=== PATIENT | female | born 1955 | race Hispanic/Latino ===

== ENCOUNTER 2017-08-06 10:44 | Observation (INO) | payer OTHER ==
[~2017-08-06] VITALS: Ht 162.6 cm; Wt 95.8 kg
[2017-08-06 11:26] LABS: BASOPHILS % (AUTO) 1.1 % (0.0-5.0); EOSINOPHILS % (AUTO) 6.3 % (0.0-8.0); HEMATOCRIT 37.3 % (36-48); LYMPHOCYTES % (AUTO) 22.9 % (21.0-51.0); MEAN CORPUSCULAR HEMOGLOBIN 29.2 pg (27.0-33.0); MEAN CORPUSCULAR HGB CONC 34.5 g/dL (32.0-36.0); MEAN CORPUSCULAR VOLUME 84.6 fL (79-99); NEUTROPHILS % (AUTO) 63.7 % (40.0-77.0); PLATELET COUNT (AUTO) 353 K/uL (130-400); RED BLOOD CELL COUNT(AUTO) 4.41 MIL/uL (4.00-5.50); RED CELL DISTRIBUTION WIDTH 13.3 % (11.0-15.5); WHITE BLOOD COUNT (AUTO) 8.7 K/uL (4.8-10.8)
[2017-08-06 11:39] LABS: CREATININE 1.2 mg/dL (0.5-1.5); POTASSIUM 4.4 mmol/L (3.5-5.1)
[2017-08-06 11:54] LABS: ALBUMIN 2.9 g/dL (3.5-5.0); BILIRUBIN,TOTAL 0.4 mg/dL (0.2-1.0); CREATINE KINASE MB 0.6 ng/mL (0.5-3.6); TOTAL PROTEIN, SERUM 8.2 g/dL (6.0-8.3)
[2017-08-06] MEDS ORDERED: TETRACAINE HCL 0.5% 4 ML OPHTH SOLN ONE (12:59)
[2017-08-06] MEDS ORDERED: SODIUM CHLORIDE 0.9% 1000ML 1,000 ML IV ONE (13:00)
[2017-08-06] MEDS ORDERED: PROCHLORPERAZINE EDISYLATE 10 MG/2 ML VIAL ONE (13:00)
[2017-08-06] MEDS ORDERED: FLUORESCEIN SODIUM 0.6 MG STRIP ONE (13:03)
[2017-08-06] MEDS ORDERED: ASPIRIN 325 MG TABLET ONE (15:51)
[2017-08-06] MEDS ORDERED: ZOLPIDEM TARTRATE 5 MG TAB PO PRN (16:45)
[2017-08-06] MEDS ORDERED: ACETAMINOPHEN 325 MG TAB PO PRN (16:45)
[2017-08-06] MEDS ORDERED: ONDANSETRON HCL MDV 20ML 2 MG/ML VIAL IV PRN (16:45)
[2017-08-06] MEDS ORDERED: CLONIDINE HCL 0.1 MG TABLET PO PRN (16:45)
[2017-08-06] MEDS ORDERED: HYDRALAZINE HCL 20 MG/ML VIAL IV PRN (16:45)
[2017-08-06] MEDS ORDERED: LACTULOSE 20 GM/30 ML UDCUP PO PRN (16:45)
[2017-08-06] MEDS ORDERED: ALPRAZOLAM 0.25 MG TABLET PO PRN (16:45)
[2017-08-06] MEDS ORDERED: SODIUM CHLORIDE 0.9% 1000ML 1,000 ML IV SCH (17:15)
[2017-08-06 18:11] LABS: CREATINE KINASE MB 0.5 ng/mL (0.5-3.6); CREATINE KINASE, TOTAL 57 U/L (21-232); MYOGLOBIN 30 ng/mL (10-92); TROPONIN I < 0.04 ng/mL (0.00-0.06)
[2017-08-06] MEDS ORDERED: GLYB-228 PO (18:55)
[2017-08-06] MEDS ORDERED: LOSA1TAB54 PO (18:55)
[2017-08-06] MEDS ORDERED: ISOS30TA6 PO (18:55)
[2017-08-06] MEDS ORDERED: PARO-37 PO (18:55)
[2017-08-06] MEDS ORDERED: AMLO2.5T PO (18:55)
[2017-08-06] MEDS ORDERED: FENO48TA15 PO (18:55)
[2017-08-06] MEDS ORDERED: METO50TA18 PO (18:55)
[2017-08-06] MEDS ORDERED: INSU100I21 SQ (18:55)
[2017-08-06] MEDS ORDERED: ATOR40TA69 PO (18:55)
[2017-08-06] MEDS ORDERED: LEVO125T98 PO (18:55)
[2017-08-06 19:05] VITALS: BP 156/76
[2017-08-06] MEDS ORDERED: ASPI-555 PO (19:05)
[2017-08-06] MEDS: INSULIN HUMULIN R 100 UNIT/ML 3ML SQ SCH (20:44)
[2017-08-06] MEDS ORDERED: ATORVASTATIN CALCIUM 40 MG TABLET PO SCH (21:00)
[2017-08-06 23:51] VITALS: BP 155/73
[2017-08-07 00:47] LABS: CREATINE KINASE MB < 0.5 ng/mL (0.5-3.6); CREATINE KINASE, TOTAL 52 U/L (21-232); MYOGLOBIN 30 ng/mL (10-92); TROPONIN I < 0.04 ng/mL (0.00-0.06)
[2017-08-07 04:01] VITALS: BP 156/73
[2017-08-07 04:08] LABS: BASOPHILS % (AUTO) 0.7 % (0.0-5.0); EOSINOPHILS % (AUTO) 9.5 % (0.0-8.0); HEMATOCRIT 34.7 % (36-48); MEAN CORPUSCULAR HEMOGLOBIN 29.8 pg (27.0-33.0); MEAN CORPUSCULAR HGB CONC 35.4 g/dL (32.0-36.0); MEAN CORPUSCULAR VOLUME 84.2 fL (79-99); MONOCYTES % (AUTO) 6.9 % (3.0-13.0); NEUTROPHILS % (AUTO) 53.9 % (40.0-77.0); PLATELET COUNT (AUTO) 343 K/uL (130-400); RED BLOOD CELL COUNT(AUTO) 4.12 MIL/uL (4.00-5.50); RED CELL DISTRIBUTION WIDTH 13.4 % (11.0-15.5); WHITE BLOOD COUNT (AUTO) 7.9 K/uL (4.8-10.8)
[2017-08-07 04:16] LABS: MAGNESIUM 1.3 mg/dL (1.80-2.40); POTASSIUM 3.8 mmol/L (3.5-5.1)
[2017-08-07 04:22] LABS: HEMOGLOBIN A1C 13.3 % (4.0-6.0)
[2017-08-07] MEDS: INSULIN HUMULIN R 100 UNIT/ML 3ML SQ SCH ×4 (06:22→20:38)
[2017-08-07] MEDS ORDERED: GADOBENATE DIMEGLUMINE 20 ML IV ONE (07:11)
[2017-08-07 08:00] VITALS: BP 175/87
[2017-08-07] MEDS: CLOPIDOGREL BISULFATE 75 MG TAB PO SCH (09:11)
[2017-08-07] MEDS: LORAZEPAM 2 MG/ML 1 ML VIAL IVP SCH (09:12)
[2017-08-07] MEDS: PANTOPRAZOLE SODIUM 40 MG TABLET.DR PO SCH (09:12)
[2017-08-07] MEDS: ENOXAPARIN SODIUM 40 MG/0.4 ML SYRINGE SQ SCH (09:13)
[2017-08-07] MEDS: GLYBURIDE/METFORMIN HCL 5/500MG TABLET PO SCH ×2 (11:00→21:00)
[2017-08-07] MEDS: METOPROLOL TARTRATE 50 MG TAB PO SCH ×2 (11:00→20:20)
[2017-08-07 12:00] VITALS: BP 162/74
[2017-08-07] MEDS: AMLODIPINE BESYLATE 2.5 MG TAB PO SCH (12:48)
[2017-08-07] MEDS: LOSARTAN/HYDROCHLOROTHIAZIDE 50-12.5MG TABLET PO SCH (12:48)
[2017-08-07] MEDS: ISOSORBIDE MONO 30MG TAB SR PO SCH (12:49)
[2017-08-07] MEDS: INSULIN GLARGINE 100 UNITS/ML 10 ML VIAL SQ SCH (12:57)
[2017-08-07 14:35] LABS: APPEARANCE,URINE Clear (CLEAR); BILIRUBIN,URINE Negative (NEGATIVE); COLOR,URINE Yellow (YELLOW); GLUCOSE, URINE (UA) >=1000 mg/dL (NEGATIVE); KETONES,URINE Negative (NEGATIVE); LEUKOCYTE ESTERASE ,URINE Trace (NEGATIVE); NITRATE,URINE Negative (NEGATIVE); OCCULT BLOOD,URINE Negative (NEGATIVE); PH,URINE 6.5 (5.0-8.0); PROTEIN,URINE POS 1+ (NEGATIVE)
[2017-08-07 14:50] LABS: BACTERIA,URINE None Seen /HPF (None Seen); RBC,URINE None Seen /HPF (0-1); WBC,URINE 0-1 /HPF (0-1)
[2017-08-07 16:00] VITALS: BP 145/86
[2017-08-07] MEDS: MAGNESIUM 2GM PREMIX 50ML 50 ML IV SCH (18:36)
[2017-08-07 20:03] VITALS: BP 135/77
[2017-08-07] MEDS ORDERED: FENOFIBRATE NANOCRYSTALLIZED 48 MG TAB PO SCH (21:00)
[2017-08-07] MEDS ORDERED: ATORVASTATIN CALCIUM 40 MG TABLET PO SCH (21:00)
[2017-08-07] MEDS ORDERED: METOPROLOL TARTRATE 50 MG TAB PO SCH (21:00)
[2017-08-07] MEDS ORDERED: GLYBURIDE/METFORMIN HCL 5/500MG TABLET PO SCH (21:00)
[2017-08-07] MEDS ORDERED: PAROXETINE HCL 20 MG TABLET PO SCH (21:00)
[2017-08-07 23:46] VITALS: BP 98/53
[2017-08-08 03:59] VITALS: BP 111/63
[2017-08-08] MEDS: INSULIN HUMULIN R 100 UNIT/ML 3ML SQ SCH ×3 (05:51→16:30)
[2017-08-08 06:08] LABS: CREATININE 1.3 mg/dL (0.5-1.5); MAGNESIUM 1.7 mg/dL (1.80-2.40); POTASSIUM 4.2 mmol/L (3.5-5.1)
[2017-08-08] MEDS ORDERED: LEVOTHYROXINE 125 MCG TABLET PO SCH (07:30)
[2017-08-08 08:00] VITALS: BP 148/78
[2017-08-08] MEDS: LORAZEPAM 2 MG/ML 1 ML VIAL IVP SCH (08:15)
[2017-08-08] MEDS ORDERED: PAROXETINE HCL 20 MG TABLET PO SCH (09:00)
[2017-08-08] MEDS ORDERED: ISOSORBIDE MONO 30MG TAB SR PO SCH (09:00)
[2017-08-08] MEDS ORDERED: LOSARTAN/HYDROCHLOROTHIAZIDE 50-12.5MG TABLET PO SCH (09:00)
[2017-08-08] MEDS ORDERED: AMLODIPINE BESYLATE 2.5 MG TAB PO SCH (09:00)
[2017-08-08] MEDS: PANTOPRAZOLE SODIUM 40 MG TABLET.DR PO SCH (09:22)
[2017-08-08] MEDS: AMLODIPINE BESYLATE 2.5 MG TAB PO SCH (09:23)
[2017-08-08] MEDS: ISOSORBIDE MONO 30MG TAB SR PO SCH (09:23)
[2017-08-08] MEDS: LOSARTAN/HYDROCHLOROTHIAZIDE 50-12.5MG TABLET PO SCH (09:23)
[2017-08-08] MEDS: CLOPIDOGREL BISULFATE 75 MG TAB PO SCH (09:24)
[2017-08-08] MEDS: METOPROLOL TARTRATE 50 MG TAB PO SCH (09:24)
[2017-08-08] MEDS: ENOXAPARIN SODIUM 40 MG/0.4 ML SYRINGE SQ SCH (09:28)
[2017-08-08] MEDS: INSULIN GLARGINE 100 UNITS/ML 10 ML VIAL SQ SCH (09:33)
[2017-08-08] MEDS: GLYBURIDE/METFORMIN HCL 5/500MG TABLET PO SCH (10:35)
[2017-08-08 12:00] VITALS: BP 119/54
[2017-08-08] MEDS ORDERED: PARO-37 PO (12:32)
[2017-08-08] MEDS ORDERED: CLOP75TA14 PO (12:32)
[2017-08-08] MEDS ORDERED: ALPR0.255 PO (12:32)
[2017-08-08] MEDS: MAGNESIUM 2GM PREMIX 50ML 50 ML IV SCH (13:10)
[2017-08-08 16:00] VITALS: BP 103/52
== END 2017-08-08 18:45 | disposition home or self-care (01) ==
LOC: EDH 10:44 → EDHIP 10:45 → 3BH 18:44
PROVIDERS: ADMIT Family Medicine; ATTEND Family Medicine
DX: G45.9 Transient cerebral ischemic attack, unspecified (principal); M79.1 Myalgia; E11.51 Type 2 diabetes mellitus with diabetic peripheral angiopathy without gangrene; E11.65 Type 2 diabetes mellitus with hyperglycemia; I10 Essential (primary) hypertension; I20.9 Angina pectoris, unspecified; E03.9 Hypothyroidism, unspecified; E78.5 Hyperlipidemia, unspecified; E83.42 Hypomagnesemia; H40.9 Unspecified glaucoma; F41.1 Generalized anxiety disorder; Z86.73 Personal history of transient ischemic attack (TIA), and cerebral infarction without residual deficits; Z87.891 Personal history of nicotine dependence; Z79.82 Long term (current) use of aspirin; Z82.3 Family history of stroke; Z82.49 Family history of ischemic heart disease and other diseases of the circulatory system; Z83.3 Family history of diabetes mellitus; Z98.51 Tubal ligation status
CPT/HCPCS: 36415 ×3; 70450; 70553; 71045; 80048 ×2; 80053; 80061; 81001; 82550 ×3; 82553 ×3; 82948 ×9; 83036; 83735 ×2; 83874 ×2; 84484 ×3; 85025 ×2; 93005; 93306; 93880; 96361 ×2; 96365; 96366; 96372 ×3; 96375; 99285; A9577; G0378 ×56; J0360; J0780; J1650 ×2; J1815 ×3; J2060; J3475 ×2; J7030 ×3